=== PATIENT | female | born 1995 | race Caucasian/White ===

== ENCOUNTER 2018-04-12 22:45 | Emergency (ER) | payer SELFPAY ==
[~2018-04-12] VITALS: Ht 160 cm; Wt 78.9 kg
[2018-04-12 22:55] VITALS: Ht 160 cm; Wt 78.9 kg
[2018-04-13 01:59] LABS: UA SPECIFIC GRAVITY 1.025 (1.005-1.035); microscopic required? YES; urine erythrocyte 3+ (NEGATIVE)
[2018-04-13 03:31] VITALS: BP 125/69
== END 2018-04-13 03:31 | disposition home or self-care (01) ==
LOC: ED 22:45
PROVIDERS: Emergency Medicine
DX: N39.0 Urinary tract infection, site not specified (principal); Z90.89 Acquired absence of other organs
CPT/HCPCS: J1885; Q0092